=== PATIENT | female | born 2000 | race American Indian/Alaskan Native ===

== ENCOUNTER 2019-06-03 13:08 | Emergency (ER) | payer SELFPAY ==
[2019-06-03 13:14] VITALS: BP 144/81
[2019-06-03] MEDS ORDERED: ZOFRAN ODT PO ONE (13:35)
--- NOTE | 2019-06-03 13:35 | Event Note ---
ED Screening Note Date of service: 06/03/19 Time: 13:33 ED Screening Note: This is a 18 y.o. F. that presents to the ER with n/v for 1 day. LMP 06/02/2019 Reports history of vomiting with menses. Taking OTC medication and unable to hold anything down. This initial assessment/diagnostic orders/clinical plan/treatment(s) is/are subject to change based on patients health status, clinical progression and re- assessment by fellow clinical providers in the ED. Further treatment and workup at subsequent clinical providers discretion. Patient/guardian urged not to elope from the ED as their condition may be serious if not clinically assessed and managed. Initial orders include: Labs Given zofran
[2019-06-03] MEDS ORDERED: ZOFRAN ODT ONE (13:37)
[2019-06-03] MEDS ORDERED: ALUM-MAG HYDROX-SIMETH 200-200-20MG/5ML PO ONE (14:01)
[2019-06-03] MEDS ORDERED: ZOFRAN IV ONE (14:01)
[2019-06-03] MEDS ORDERED: LIDOCAINE VISCOUS 2% PO ONE (14:01)
[2019-06-03] MEDS ORDERED: NACL 0.9% 1000 ML 1,000 ML IV ONE (14:01)
--- NOTE | 2019-06-03 14:03 | Emergency Department Report ---
Vomiting/Diarrhea - HPI Chief Complaint: Nausea/Vomiting/Diarrhea Stated Complaint: VOMIT/NAUSEA Time Seen by Provider: 06/03/19 13:33 Duration: 2 Days Nausea/Vomiting Severity: Severe Diarrhea Severity: None Pain Location: Other (no pain) Pain Severity: None Symptoms: No Watery Diarrhea, No Bloody diarrhea, No Fever, No Able to Tolerate Fluids, No Recent Unusual Foods, No Recent Untreated Water, No Recent use of Antibiotics, No Family w/ Similar Symptoms, No Contacts w/ Similar Symptoms, No Rash, No Hematuria, No Recent URI Symptoms Other History: Patient reported that she started her menstrual cycle and she has nausea and vomiting and she is not able to keep any foods down. She denies any diarrhea or abdominal cramping. Pain is 0-10. Denies being . Denies any shortness of breath or chest pain. Denies any fever or chills. Denies any vomiting bladder any better in her stool. Denies any sore throat or coughing. ED Review of Systems ROS: Stated complaint: VOMIT/NAUSEA Other details as noted in HPI Constitutional: denies: chills, fever ENT: denies: throat pain, congestion Respiratory: denies: cough, shortness of breath, SOB with exertion, wheezing Cardiovascular: denies: chest pain, palpitations, dyspnea on exertion, edema, syncope, paroxysmal nocturnal dyspnea Gastrointestinal: nausea, vomiting. denies: abdominal pain, diarrhea, constipation, hematemesis, melena, hematochezia Genitourinary: denies: urgency, dysuria, frequency, hematuria, discharge, abnormal menses, dyspareunia Musculoskeletal: denies: back pain, joint swelling, arthralgia Skin: denies: rash Neurological: denies: headache, weakness, numbness, paresthesias, confusion, abnormal gait, vertigo Psychiatric: denies: anxiety ED Past Medical Hx - Past Medical History Previous Medical History?: No - Surgical History Past Surgical History?: No - Family History Family history: hypertension - Social History Smoking Status: Never Smoker Substance Use Type: None - Medications Home Medications: Home Medications Medication Instructions Recorded Confirmed Last Taken Type Ondansetron [Zofran ODT TAB] 8 mg PO Q6H PRN #12 tab.rapdis 06/03/19 Unknown Rx Vomiting Diarrhea Exam - Exam General: Vital signs noted. No distress. Alert and acting appropriately. This is a 18-year-old female well-nourished well-developed in no acute distress HEENT: No Pharyngeal Erythema, No Pharyngeal Exudates, No Moist Mucous Membranes (dry), No Rhinorrhea, No Conjuctival Injection, No Frontal Tenderness, No Maxillary Tenderness Lungs: Yes Clear Lung Sounds, Yes Good Air Exchange, No Wheezes, No Stridor, No Cough, No Nasal Flaring, No Retractions, No Use of Accessory Muscles Heart exam: Regular: Yes, Murmur: No, Tachycardia: No Abdomen: Tenderness: No (and tender to palpate in all quadrants without any guarding or rebound), Peritoneal Signs: No, Distention: No, Hyperactive Bowel sounds: No (normal bowel sounds in all quadrants) Skin exam: Rash: No, Edema: No, Normal turgor: Yes Neurologic: Alert and oriented, no deficits. Musculoskeletal: Unremarkable. No cce. + 2 pulses in all extremities, no neurovascular compromise ED Course Vital Signs 06/03/19 13:12 Temperature 98.3 F Pulse Rate 70 Respiratory 18 Rate Blood Pressure 144/81 [Right] O2 Sat by Pulse 100 Oximetry - Reevaluation(s) Reevaluation #1: 06/03/19 16:23 She received 1 L of normal saline along with 4 mg Zofran IV and she says she felt a lot better she is able to tolerate oral liquids. She prior to IV she received Zofran 4 mg ODT in triage area. She stable and in no acute distress at present ED Medical Decision Making - Lab Data Result diagrams: 06/03/19 13:54 06/03/19 13:49 Lab Results 06/03/19 06/03/19 06/03/19 Range/Units 13:49 13:54 14:11 WBC 6.5 (4.5-11.0) K/mm3 RBC 4.37 (3.65-5.03) M/mm3 Hgb 13.1 (10.1-14.3) gm/dl Hct 39.2 (30.3-42.9) % MCV 90 (79-97) fl MCH 30 (28-32) pg MCHC 34 (30-34) % RDW 13.3 (13.2-15.2) % Plt Count 273 (140-440) K/mm3 Lymph % (Auto) 12.0 L (13.4-35.0) % [place] % (Auto) 4.6 (0.0-7.3) % Eos % (Auto) 0.0 (0.0-4.3) % Baso % (Auto) 0.5 (0.0-1.8) % Lymph # 0.8 L (1.2-5.4) K/mm3 [place] # 0.3 (0.0-0.8) K/mm3 Eos # 0.0 (0.0-0.4) K/mm3 Baso # 0.0 (0.0-0.1) K/mm3 Seg Neutrophils % 82.9 H (40.0-70.0) % Seg Neutrophils # 5.4 (1.8-7.7) K/mm3 Sodium 138 (137-145) mmol/L Potassium 3.9 (3.6-5.0) mmol/L Chloride 102.7 (98-107) mmol/L Carbon Dioxide 20 L (22-30) mmol/L Anion Gap 19 mmol/L BUN 13 (7-17) mg/dL Creatinine 0.7 (0.7-1.2) mg/dL Estimated GFR > 60 ml/min BUN/Creatinine Ratio 19 % Glucose 99 (65-100) mg/dL Calcium 9.5 (8.4-10.2) mg/dL Total Bilirubin 0.90 (0.1-1.2) mg/dL AST 23 (5-40) units/L ALT 13 (7-56) units/L Alkaline Phosphatase 55 (35-129) units/L Total Protein 8.4 H (6.3-8.2) g/dL Albumin 4.8 (3.9-5) g/dL Albumin/Globulin Ratio 1.3 % HCG, Quant < 2 (0-4) mIU/mL - Medical Decision Making This is a 18-year-old female here reports nausea and vomiting. She received IV fluid normal saline 1 L and able to tolerate oral liquids and was given a total of 8 mg of Zofran 4 mg IV and 4 mg ODT and she is voicing that she is feeling a lot better. Abdominal exam has been normal. Patient is stable and in no acute distress at present. Vital signs stable she is afebrile and discharged home her prescription for Zofran ODT. - Differential Diagnosis , hormone induced nausea and vomiting, viral infection Critical care attestation.: If time is entered above; I have spent that time in minutes in the direct care of this critically ill patient, excluding procedure time. ED Disposition Clinical Impression: Mild dehydration Nausea and vomiting Qualifiers: Vomiting type: unspecified Vomiting Intractability: non-intractable Qualified Code(s): R11.2 - Nausea with vomiting, unspecified Disposition: DC-01 TO HOME OR SELFCARE Is pt being admited?: No Does the pt Need Aspirin: No Condition: Stable Instructions: Acute Nausea and Vomiting (ED), Dehydration (ED) Additional Instructions: Please follow-up with your [facility] or primary care physician in 2-3 days regarding ongoing nausea and vomiting with menstrual cycle. Take Zofran for nausea as prescribed Please increase your fluid intake to include Gatorade and avoid spicy and carbonated beverages. If your condition worsens, return to the emergency room Prescriptions: Ondansetron [Zofran ODT TAB] 8 mg PO Q6H PRN #12 tab.rapdis PRN Reason: nausea and vomiting Referrals: JIMY POMPA MD [Staff Physician] - 2-3 Days [facility] [Outside] - 2-3 Days Forms: Work/School Release Form(ED), Accompanied Note
[2019-06-03 14:33] LABS: Basophils % (Auto) 0.5 % (0.0-1.8); Hematocrit 39.2 % (30.3-42.9); Hemoglobin 13.1 gm/dl (10.1-14.3); Lymphocytes # (Auto) 0.8 K/mm3 (1.2-5.4); Mean Corpuscular HGB Conc 34 % (30-34); Mean Corpuscular Volume 90 fl (79-97); Monocytes # (Auto) 0.3 K/mm3 (0.0-0.8); Monocytes % (Auto) 4.6 % (0.0-7.3); Platelet Count 273 K/mm3 (140-440); Red Blood Count 4.37 M/mm3 (3.65-5.03); Red Cell Distribution Width 13.3 % (13.2-15.2)
[2019-06-03 14:37] LABS: Alanine Aminotransferase 13 units/L (7-56); Albumin 4.8 g/dL (3.9-5); BUN/Creatinine Ratio 19; Blood Urea Nitrogen 13 mg/dL (7-17); Calcium 9.5 mg/dL (8.4-10.2); Hemolysis Index 5
== END 2019-06-03 16:49 | disposition home or self-care (01) ==
LOC: ED 13:08
DX: E86.0 Dehydration (principal); R11.2 Nausea with vomiting, unspecified; R19.7 Diarrhea, unspecified; Z79.899 Other long term (current) drug therapy
CPT/HCPCS: 36415; 80053; 84702; 85025; 96361; 96374; 99283; J2405; J7030; Q0162